=== PATIENT | female | born 1955 | race Caucasian/White ===

== ENCOUNTER → 2016-09-03 | Outpatient (CLI) | payer BC ==
--- NOTE | 2016-09-03 16:03 | KCIC ---
EXAM: Bilateral screening mammogram. HISTORY: 61-year-old female presents for screening mammography. TECHNIQUE: Full-field digital craniocaudal and mediolateral oblique views of both breasts are obtained for evaluation. Computer aided detection with [employer] software version 9.3 was applied. COMPARISON: 07/17/2015 BREAST PARENCHYMAL DENSITY: Level B - Scattered fibroglandular densities. FINDINGS: There is no new suspicious mass, microcalcification or region of architectural distortion. There is focal asymmetry within the lateral aspect of the left breast which is slightly more conspicuous due to differences in patient positioning and compression technique. IMPRESSION: BI-RADS Category 2: Benign finding(s). RECOMMENDATION: Annual mammography is recommended. If your mammogram demonstrates that you have dense breast tissue, which could hide abnormalities, and if you have other risk factors for breast cancer that have been identified, you might benefit from supplemental screening tests that may be suggested by your ordering physician. Dense breast tissue, in and of itself, is a relatively common condition. This information is not provided to cause undue concern, but rather to raise your awareness and to promote discussion with your physician regarding the presence of other risk factors, in addition to dense breast tissue. A report of your mammography results will be sent to you and your physician. You should contact your physician if you have any questions or concerns regarding this report. Mammography is a sensitive method for finding small breast cancers, but it does not detect them all and is not a substitute for careful clinical examination. A negative mammogram does not negate a clinically suspicious finding and should not result in delay in biopsying a clinically suspicious abnormality. PQRS compliance statement - Patient information was entered into a reminder system with a target due date for the next mammogram. "Our facility is accredited by the [employer] Mammography [employer]." Electronically signed by: Roselyn Lara MD (09/03/2016 3:58 PM) [id number]
== END | disposition home or self-care (01) ==
LOC: KCIC MAMMO 07:35
PROVIDERS: ATTEND Internal Medicine
DX: Z12.31 Encounter for screening mammogram for malignant neoplasm of breast (principal)
CPT/HCPCS: G0202; 77067

== ENCOUNTER → 2017-10-03 | Outpatient (CLI) | payer BC, OTHER ==
--- NOTE | 2017-10-04 13:05 | KCIC ---
Bilateral digital screening mammograms with 3-D tomosynthesis: Reason for examination: Routine screening. Comparison is made to previous studies dated 09/03/2016 and 07/17/2015. Bilateral mammograms in CC and oblique projections were obtained with 2-D imaging and 3-D tomosynthesis imaging on a Siemens Inspiration unit and reviewed on the workstation. Interpretation was made with the benefit of CAD. The skin and nipples show no abnormalities. No abnormal axillary lymph nodes are seen. The breast parenchyma shows scattered fatty and fibroglandular density. (Breast density: Category B.) There are several small nodular parenchymal densities in the right breast. These appear to be subcentimeter in size. Further evaluation with coned compression views and ultrasound is recommended. There are no other dominant masses, suspicious calcifications or architectural distortion. Impression: Small nodular densities in the right breast. Recommend further evaluation with coned compression views and ultrasound. BI-RADS Category 0: Incomplete. Needs additional imaging evaluation. "Our facility is accredited by the [employer] Mammography [employer]." This patient's information has been entered into a reminder system for the patient to be notified with the results of her examination and a target date for the next mammogram. Electronically signed by: Ijeoma Callaway MD (10/04/2017 1:01 PM) [facility]
== END | disposition home or self-care (01) ==
LOC: KCIC MAMMO 16:00
PROVIDERS: ATTEND Family Medicine
DX: Z12.31 Encounter for screening mammogram for malignant neoplasm of breast (principal)
CPT/HCPCS: 77063; 77067

== ENCOUNTER → 2017-10-21 | Outpatient (CLI) | payer OTHER ==
--- NOTE | 2017-10-21 15:34 | KCIC ---
Right breast diagnostic digital mammograms: Reason for examination: Nodular densities on screening mammogram. Comparison is made to mammographic exam dated 10/03/2017. Coned compression views were obtained in CC and oblique projections. The nodularity posterior superiorly does not appear to persists. There is still some nodularity present however in the 3:00 position. Further evaluation with ultrasound will follow. IMPRESSION: Some nodularity appears persistent medially in the 3:00 position. Ultrasound to follow. BI-RADS Category 0: Incomplete. Needs additional imaging evaluation. Right breast ultrasound: Ultrasound examination was performed in the areas of mammographic concern within the upper outer quadrant and in the medial right breast and at the right axilla. At the 3:00 position 2 cm from the nipple, a hypoechoic circumscribed lesion measuring 7.7 mm in greatest dimension and 9 in parallel orientation is present and consistent with a complicated cyst. No abnormal vascular flow seen. No other cystic or solid nodules are seen. No abnormal appearing lymph nodes are seen in the axilla. IMPRESSION: Benign-appearing circumscribed nodule at the 3:00 position consistent with a complicated cyst. No suspicious abnormality seen. Recommend 6 month follow-up with mammograms and ultrasound. BI-RADS Category 3: Probably Benign. "Our facility is accredited by the [employer] Mammography [employer]." This patient's information has been entered into a reminder system for the patient to be notified with the results of her examination and a target date for the next mammogram. Electronically signed by: Ijeoma Callaway MD (10/21/2017 3:30 PM) [id number]
== END | disposition home or self-care (01) ==
LOC: KCIC MAMMO 12:58
PROVIDERS: ATTEND Family Medicine
DX: R92.8 Other abnormal and inconclusive findings on diagnostic imaging of breast (principal)
CPT/HCPCS: 76641; 77065

== ENCOUNTER → 2018-05-19 | Outpatient (CLI) | payer OTHER ==
--- NOTE | 2018-05-19 16:52 | KCIC ---
Right breast diagnostic digital mammograms with 3-D tomosynthesis: Reason for examination: Follow-up nodules. Comparison is made to previous studies dated 10/21/2017, 10/03/2017 and 09/03/2016. Right breast mammograms in CC and oblique projections were obtained with 2-D imaging and 3-D tomosynthesis imaging on a Siemens Inspiration unit and reviewed on the workstation. Interpretation was made with the benefit of CAD. The skin and nipple show no abnormalities. No abnormal axillary lymph nodes are seen. The breast parenchyma shows scattered fatty and fibroglandular density. (Breast density: Category B.) There appears be improvement of nodularity seen previously in the breast. There are no new dominant masses, suspicious calcifications or architectural distortion. Impression: Improvement in the nodularity seen in the right breast. Ultrasound to follow. BI-RAD Category 0: Incomplete. Needs additional imaging evaluation. Right breast ultrasound: Comparison is made to previous study dated 10/21/2017. Ultrasound examination of the right breast and axilla was performed. There continues to be a small 4.9 mm cystic lesion in the 3:00 position 2 cm from the nipple which has decreased in size. There also appears to be a small 3.8 mm hypoechoic fibrocystic type lesion at the 9:00 position 6 cm from the nipple. No suspicious-appearing nodules are seen. No abnormal appearing lymph nodes are seen in the right axilla. IMPRESSION: Benign-appearing cystic and fibrocystic lesions in the right breast at the 3:00 and 9:00 positions respectively. No suspicious lesion seen. Recommend continued 6 month follow-up ultrasound at the time of bilateral mammograms. BI-RADS Category 3: Probably Benign. "Our facility is accredited by the [employer] Mammography Program." This patient's information has been entered into a reminder system for the patient to be notified with the results of her examination and a target date for the next mammogram. Electronically signed by: Ijeoma Callaway MD (05/19/2018 4:49 PM) [id number]
== END | disposition home or self-care (01) ==
LOC: KCIC MAMMO 12:52
PROVIDERS: ATTEND Family Medicine
DX: N63.10 Unspecified lump in the right breast, unspecified quadrant (principal)
CPT/HCPCS: 76641; 77065; G0279; 77061